=== PATIENT | female | born 1955 | race Caucasian/White ===

== ENCOUNTER 2017-05-28 17:45 | Emergency (ER) | payer OTHER ==
[2017-05-28 17:59] VITALS: BP 138/79
--- NOTE | 2017-05-28 18:58 | EDM.PDOC ---
ED HPI GENERAL MEDICAL PROBLEM - General Chief Complaint: Upper Extremity Injury/Pain Stated Complaint: LEFT ARM HURTS Time Seen by Provider: 05/28/17 18:00 Source of Information: Reports: Patient History Limitations: Reports: No Limitations - History of Present Illness INITIAL COMMENTS - FREE TEXT/NARRATIVE: 61-year-old [id number] female comes in today for evaluation of pain discomfort in her left forearm. Patient reports over the May she was carrying a canoe into her garage when it slipped fell out of her hand and landed on her left upper forearm. She is no some mild bruising and tenderness over the midforearm. She reports that she is having increased difficulty using her forearm such as picking up her cup of coffee. She's also had some recent shoulder problems on the left side which she has seen orthopedic surgeon for in the past. He did have an injection in her shoulder but states that she did not tolerate the corticosteroid injection. She's been taking some Tylenol for her forearm pain but nothing else. She can take NSAIDs and does have some at home but has not tried these yet. She does notice a little bit of tingling in her forearm. She denies significant swelling. Comes this evaluated. Onset: Gradual Onset Date: 05/24/17 Duration: Day(s):, Constant Location: Reports: Upper Extremity, Left (forearm) Quality: Reports: Ache Severity: Moderate Improves with: Reports: None Worsens with: Reports: Movement Associated Symptoms: Reports: No Other Symptoms Treatments [employer] PPM CONSULTANT: Reports: Acetaminophen, Other (see below) Other Treatments [employer] PPM CONSULTANT: oxycodone Left Arm Pain Score (Numeric/FACES): 10 - Related Data Allergies Allergy/AdvReac Type Severity Reaction Status Date / Time aloe Allergy Shortness Verified 05/28/17 17:59 of Breath ciprofloxacin Allergy Shortness Verified 05/28/17 17:59 of Breath cyclobenzaprine Allergy Shortness Verified 05/28/17 17:59 [From Flexeril] of Breath diclofenac [From Arthrotec] Allergy Shortness Verified 05/28/17 17:59 of Breath misoprostol [From Arthrotec] Allergy Shortness Verified 05/28/17 17:59 of Breath Sulfa (Sulfonamide Allergy Shortness Verified 05/28/17 17:59 Antibiotics) of Breath Home Meds: Home Meds Budesonide/Formoterol Fumarate [Symbicort 80-4.5 Mcg Inhaler] 1 puff IH DAILY PRN 10/22/16 [History] Albuterol Sulfate [Proventil Hfa] 1 puff INH Q4H PRN 05/28/17 [History] oxyCODONE 1 tab PO Q6H PRN 05/28/17 [History] Past Medical History - Past Health History Medical/Surgical History: Denies Medical/Surgical History HEENT History: Reports: Impaired Vision, Other (See Below) Other HEENT History: tinnitis Respiratory History: Reports: Asthma, Pneumonia, Recurrent Gastrointestinal History: Reports: None Genitourinary History: Reports: None Musculoskeletal History: Reports: Back Pain, Chronic, Neck Pain, Chronic, Other (See Below) Other Musculoskeletal History: tear in left shoulder,hip fracture Neurological History: Reports: Migraines Hematologic History: Reports: Anesthesia Reaction, Blood Transfusion(s), Other ( See Below) Other Hematologic History: any "devika" medicine causes trouble breathing. - Infectious Disease History Infectious Disease History: Reports: Chicken Pox, Influenza, Measles, Mumps, Pertussis (Whooping Cough), Rubella - Past Surgical History Head Surgeries/Procedures: Reports: None HEENT Surgical History: Reports: Adenoidectomy, Tonsillectomy Respiratory Surgical History: Reports: None GI Surgical History: Reports: Colonoscopy, Polypectomy Female Surgical History: Reports: Tubal Ligation Neurological Surgical History: Reports: None Musculoskeletal Surgical History: Reports: Hip Replacement Dermatological Surgical History: Reports: None Social & Family History - Family History Family Medical History: Noncontributory - Tobacco Use Smoking Status *Q: Current Every Day Smoker Years of Tobacco use: 10 Packs/Tins Daily: 0.5 Used Tobacco, but Quit: No Second Hand Smoke Exposure: No - Caffeine Use Caffeine Use: Reports: Coffee - Recreational Drug Use Recreational Drug Use: No Review of Systems - Review of Systems Review Of Systems: See Below Musculoskeletal: Reports: Arm Pain (left forearm), Joint Pain (left shoulder), Muscle Pain. Denies: Joint Swelling Skin: Reports: Bruising (left forearm) Neurological: Reports: Numbness (left forearm) ED EXAM, GENERAL - Physical Exam Exam: See Below Exam Limited By: No Limitations General Appearance: Alert, WD/WN, No Apparent Distress Neck: Normal Inspection, Supple, Non-Tender, Full Range of Motion Extremities: Normal Inspection, Normal Range of Motion, No Pedal Edema, Normal Capillary Refill, Arm Pain (left forearm), Other (left upper extremity shows that she has normal finger wrist forearm elbow and shoulder range of motion. She has mild bruising over the left forearm and tenderness over the extensor forearm muscles. Her compartments are nice and soft. She has intact sensation to light touch she does report some distal tingling in the fingers there is no swelling of the forearm. Roll Filler strength is strong and symmetric.). No: Joint Swelling Neurological: Alert, Oriented, No Motor/Sensory Deficits Psychiatric: Normal Affect, Normal Mood Skin Exam: Warm, Dry, Intact, Normal Color, No Rash Course - Vital Signs Last Recorded V/S: Last Vital Signs Temp 99.3 F 05/28/17 17:56 Pulse 86 05/28/17 17:56 Resp 16 05/28/17 17:56 BP 138/79 05/28/17 17:56 Pulse Ox 97 05/28/17 17:56 - Orders/Labs/Meds Orders: Active Orders 24 hr Category Date Time Status Forearm 2V Lt [CR] Stat Exams 05/28/17 18:17 Ordered - Radiology Interpretation Free Text/Narrative:: X-ray 2 views left forearm Impression: Negative fracture no soft tissue swelling. - Re-Assessments/Exams Free Text/Narrative Re-Assessment/Exam: 05/28/17 19:06 Patient denies needing anything for the pain such as an injectable or medication. States that she will take some ibuprofen at home. Place her in a cockup wrist splint recommend resting and icing and minimize the lifting with her left arm over the next week. Departure - Departure Time of Disposition: 19:03 Disposition: Home, Self-Care 01 Condition: Good Clinical Impression: Contusion of left forearm, initial encounter - Discharge Information Instructions: Neck Contusion, Contusion, [id number] Referrals: PCP,Not In Area [Primary Care Provider] - Forms: ED Department Discharge Additional Instructions: 1. Wrist splint for rest and limit ROM. 2. Ibuprofen 800mg PO TID with food PRN. 3. Ice for pain. - My Orders Last 24 Hours: My Active Orders 05/28/17 18:17 Forearm 2V Lt [CR] Stat - Assessment/Plan Last 24 Hours: My Active Orders 05/28/17 18:17 Forearm 2V Lt [CR] Stat Assessment:: Left forearm contusion Plan: 1. Wrist splint for rest and limit ROM. 2. Ibuprofen 800mg PO TID with food PRN. 3. Ice for pain. 4. Minimize lifting with the left arm over the next 10-14 days 5. Follow-up with your primary care if this does not improve.
== END 2017-05-28 19:00 | disposition home or self-care (01) ==
LOC: KA.ED 17:45
DX: S50.12XA Contusion of left forearm, initial encounter (principal); F17.210 Nicotine dependence, cigarettes, uncomplicated; Z98.890 Other specified postprocedural states; Z90.49 Acquired absence of other specified parts of digestive tract; Z96.649 Presence of unspecified artificial hip joint; W01.0XXA Fall on same level from slipping, tripping and stumbling without subsequent striking against object, initial encounter
CPT/HCPCS: 73090-LT; 99283

== ENCOUNTER 2023-05-28 17:54 | Emergency (ER) | payer MEDICARE, BC ==
[2023-05-28] MEDS ORDERED: Ketorolac 30 MG/ML SDV IVPUSH ONE (18:03)
[2023-05-28 18:39] VITALS: BP 161/77; PULSE 88
[2023-05-28] MEDS ORDERED: Ondansetron 4 MG Tab.DIS PO ONE (19:10)
[2023-05-28] MEDS ORDERED: Acetaminophen/HYDROcodone 325-5 MG Tab PO ONE (19:10)
== END 2023-05-28 19:30 | disposition home or self-care (01) ==
LOC: KA.ED 17:54
DX: S22.31XA Fracture of one rib, right side, initial encounter for closed fracture (principal); J45.909 Unspecified asthma, uncomplicated; Z79.899 Other long term (current) drug therapy; Z91.048 Other nonmedicinal substance allergy status; Z88.1 Allergy status to other antibiotic agents; Z88.8 Allergy status to other drugs, medicaments and biological substances; Z88.2 Allergy status to sulfonamides; X50.0XXA Overexertion from strenuous movement or load, initial encounter
CPT/HCPCS: 71101-RT; 96374; 99283; 99283-25; A9270-GY; J1885

== ENCOUNTER 2023-10-06 13:44 | Emergency (ER) | payer MEDICARE, BC ==
[2023-10-06] MEDS ORDERED: Sodium Chloride 0.9% 10 ML Syringe FLUSH PRN (13:51)
[2023-10-06] MEDS ORDERED: Aspirin 81 MG Tab.Chew PO ONE (13:56)
[2023-10-06] MEDS: Aspirin 81 MG Tab.Chew ONE ×2 (13:57→14:03)
[2023-10-06 14:11] VITALS: PULSE 76
[2023-10-06] MEDS ORDERED: Nitroglycerin 0.4 MG Tab.SL ONE (14:15)
[2023-10-06] MEDS ORDERED: Nitroglycerin 0.4 MG Tab.SL SL PRN (14:17)
[2023-10-06 14:19] VITALS: BP 150/65
[2023-10-06 14:21] LABS: BASOPHILS ABSOLUTE AUTO 0.03 10^3/uL (0.00-0.10); BASOPHILS PERCENT AUTO 0.4 % (0.0-1.0); EOSINOPHILS ABSOLUTE AUTO 0.32 10^3/uL (0.10-0.30); EOSINOPHILS PERCENT AUTO 4.3 % (1.0-3.0); HEMATOCRIT 45.8 % (37.0-47.0); HEMOGLOBIN 14.2 g/dL (12.0-16.0); IMMATURE GRAN ABSOLUTE AUTO 0.03 10^3/uL (0.00-0.50); IMMATURE GRAN PERCENT AUTO 0.4 % (0.0-5.0); LYMPHOCYTES ABSOLUTE AUTO 2.57 10^3/uL (1.00-4.00); LYMPHOCYTES PERCENT AUTO 34.4 % (20.0-40.0); MEAN CORPUSCULAR HEMOGLOBIN 29.7 pg (27.0-31.0); MEAN CORPUSCULAR VOLUME 95.8 fL (82.0-92.0); MEAN PLATELET VOLUME 11.4 fL (7.4-10.4); MONOCYTES ABSOLUTE AUTO 0.93 10^3/uL (0.10-0.80); MONOCYTES PERCENT AUTO 12.4 % (2.0-8.0); NEUTROPHILS ABSOLUTE AUTO 3.59 10^3/uL (2.50-7.00); NEUTROPHILS PERCENT AUTO 48.1 % (50.0-70.0); PLATELET COUNT,PLT 257 10^3/uL (150-400); RED BLOOD CELL COUNT 4.78 10^6/uL (3.80-5.50); RED CELL DISTRIBUTION WIDTH 14.4 % (11.5-14.5); WHITE BLOOD CELL COUNT,WBC 7.47 10^3/uL (5.00-10.00)
[2023-10-06 14:23] LABS: ALBUMIN 3.45 g/dL (3.40-5.00); ANION GAP 11.5 mmol/L (5-15); BILIRUBIN TOTAL 0.1 mg/dL (0.2-1.0); CALCIUM 8.6 mg/dL (8.7-10.3); CARBON DIOXIDE,CO2 28.6 mmol/L (21.0-32.0); CREATININE 0.72 mg/dL (0.51-1.17); EST CRCL DRUG DOSING (CG) 64.58 mL/min; MAGNESIUM 1.8 mg/dL (1.8-2.4); POTASSIUM,K 4.1 mmol/L (3.5-5.1); PROTEIN TOTAL,TP 6.9 g/dL (6.4-8.2)
[2023-10-06] MEDS ORDERED: Ondansetron 4 MG/2 ML SDV ONE (14:29)
[2023-10-06] MEDS ORDERED: Ondansetron 4 MG/2 ML SDV IVPUSH ONE (14:29)
[2023-10-07] MEDS ORDERED: Aspirin 81 MG Tab.Chew PO ONE (13:56)
== END 2023-10-06 17:49 ==
LOC: KA.ED 13:44
DX: R00.1 Bradycardia, unspecified (principal); I49.3 Ventricular premature depolarization; K21.9 Gastro-esophageal reflux disease without esophagitis; E66.9 Obesity, unspecified; Z68.31 Body mass index [BMI] 31.0-31.9, adult; Z20.822 Contact with and (suspected) exposure to COVID-19; Z88.2 Allergy status to sulfonamides; Z91.013 Allergy to seafood; Z91.040 Latex allergy status; Z88.8 Allergy status to other drugs, medicaments and biological substances; Z91.018 Allergy to other foods; Z79.899 Other long term (current) drug therapy
CPT/HCPCS: 36415; 71045; 80053; 83690; 83735; 83880; 84443; 84484; 85025; 93005; 93010; 99284; 99285; A9270-GY; U0002

== ENCOUNTER 2024-04-02 13:27 | Emergency (ER) | payer MEDICARE, BC ==
[2024-04-02 13:58] VITALS: BP 171/73; PULSE 73
[2024-04-02 14:14] LABS: BASOPHILS ABSOLUTE AUTO 0.04 10^3/uL (0.00-0.10); BASOPHILS PERCENT AUTO 0.5 % (0.0-1.0); EOSINOPHILS ABSOLUTE AUTO 0.27 10^3/uL (0.10-0.30); EOSINOPHILS PERCENT AUTO 3.1 % (1.0-3.0); HEMATOCRIT 45.3 % (37.0-47.0); HEMOGLOBIN 14.5 g/dL (12.0-16.0); IMMATURE GRAN ABSOLUTE AUTO 0.02 10^3/uL (0.00-0.50); IMMATURE GRAN PERCENT AUTO 0.2 % (0.0-5.0); LYMPHOCYTES ABSOLUTE AUTO 3.16 10^3/uL (1.00-4.00); LYMPHOCYTES PERCENT AUTO 35.8 % (20.0-40.0); MEAN CORPUSCULAR HEMOGLOBIN 30.5 pg (27.0-31.0); MEAN CORPUSCULAR VOLUME 95.2 fL (82.0-92.0); MEAN PLATELET VOLUME 10.7 fL (7.4-10.4); MONOCYTES ABSOLUTE AUTO 0.87 10^3/uL (0.10-0.80); MONOCYTES PERCENT AUTO 9.9 % (2.0-8.0); NEUTROPHILS ABSOLUTE AUTO 4.46 10^3/uL (2.50-7.00); NEUTROPHILS PERCENT AUTO 50.5 % (50.0-70.0); PLATELET COUNT,PLT 270 10^3/uL (150-400); RED BLOOD CELL COUNT 4.76 10^6/uL (3.80-5.50); RED CELL DISTRIBUTION WIDTH 13.8 % (11.5-14.5); WHITE BLOOD CELL COUNT,WBC 8.82 10^3/uL (5.00-10.00)
[2024-04-02 14:31] LABS: ALANINE AMINOTRANSFERASE,ALT 59 U/L (14-63); ALBUMIN 3.33 g/dL (3.40-5.00); ALKALINE PHOSPHATASE 140 U/L (46-116); ANION GAP 7.5 mmol/L (5-15); ASPARTATE AMNIOTRANSFERASE,AST 40 U/L (15-37); BILIRUBIN TOTAL 0.3 mg/dL (0.2-1.0); BLOOD UREA NITROGEN,BUN 19 mg/dL (7-18); CALCIUM 9.3 mg/dL (8.7-10.3); CARBON DIOXIDE,CO2 32.2 mmol/L (21.0-32.0); CHLORIDE,CL 104 mmol/L (98-107); CREATININE 0.84 mg/dL (0.51-1.17); GLUCOSE RANDOM 116 mg/dL (70-140); POTASSIUM,K 4.7 mmol/L (3.5-5.1); PROTEIN TOTAL,TP 7.2 g/dL (6.4-8.2); SODIUM,NA 139 mmol/L (136-145)
[2024-04-02 14:35] LABS: ESTIMATED GFR 76 mL/min (>=60)
== END 2024-04-02 15:45 | disposition home or self-care (01) ==
LOC: KA.ED 13:27
DX: R07.9 Chest pain, unspecified (principal); R53.83 Other fatigue; M79.10 Myalgia, unspecified site; K21.9 Gastro-esophageal reflux disease without esophagitis; Z91.048 Other nonmedicinal substance allergy status; Z91.018 Allergy to other foods; Z88.1 Allergy status to other antibiotic agents; Z91.040 Latex allergy status; Z88.8 Allergy status to other drugs, medicaments and biological substances; Z91.013 Allergy to seafood; Z88.2 Allergy status to sulfonamides; Z79.899 Other long term (current) drug therapy; Z86.19 Personal history of other infectious and parasitic diseases
CPT/HCPCS: 36415; 80053; 84443; 84484; 85025; 85379; 93005; 93010; 99284; 99285